=== PATIENT | female | born 1975 | race Caucasian/White ===

== ENCOUNTER → 2020-02-13 10:33 | Outpatient (CLI) | payer BC, SELFPAY ==
[2020-02-14 15:09] LABS: Covid-19 Nasal PCR Sendout Lex NOT DETECTED
== END ==
PROVIDERS: Visit Provider Internal Medicine Gastroenterology
DX: Z03.818 Encounter for observation for suspected exposure to other biological agents ruled out (principal)
CPT/HCPCS: U0003

== ENCOUNTER 2020-02-15 10:34 | Day surgery (SDC) | payer BC, SELFPAY ==
[2020-02-12 12:43] VITALS: BMI 33.1
--- NOTE | 2020-02-12 13:31 | SUR.PREOP ---
02/12/20--PHONE CALL MADE TO PATIENT. PATIENT UNDERSTANDS THAT LAB WORK AND COVID TESTING NEEDS TO BE COMPLETED @ 1030 ON 02/13/20. PATIENT UNDERSTANDS IF LAB WORK AND COVID-19 TESTS ARE NOT COMPLETED BY 12PM ON THAT DATE, THE SURGERY SCHEDULED WILL BE CANCELLED AND RESCHEDULED FOR ANOTHER TIME.
[2020-02-15] VITALS (8 sets, daily range): BP systolic 118–142; BP diastolic 75–95; PULSE 55–79; RESP 18–20; TEMP 36.4–36.6; O2SAT 94–98
--- NOTE | 2020-02-15 12:45 | P.PN_ITS ---
[facility] Anesthesia Checklist - Structural Data Admitted From: Home Planned Operative Procedure/s: egd Consent for Planned Operative Procedure(s) Verified: Yes - Airway Assessment C-Spine Mobility Assessed: Yes TMJ Mobility Assessed: Yes Dentition: Poor Dentition - Neurological Assessment Level of Consciousness: Awake, Alert, Appropriate - Anesthesia Plan Anesthesia Risk discussed: Yes Anesthesia Plan: Verified ASA Class: II Anesthesia Type: MAC [facility] History I have reviewed the patient's past medical history: Yes Medical History: Denies:: Cancer, Diabetes Mellitus Type 1, Diabetes Mellitus Type 2, Internal Pacemaker, MRSA, Seizures *Have you ever received a pneumonia vaccine?: No *Have you received a flu vaccine this season?: Yes Anesthesia experience/problems:: none Laterality Cases: Bilateral: Tonsillectomy Other Surgeries: No: Pacemaker Amputation: No Fractures: No - *Social History Educational Level: Completed College Smoking Status: Light tobacco smoker # Packs/Day (cigarettes): 1 Alcohol Intake: never Substance Use Type: denies use *Occupational Status:: employed Housing: house Household Members: spouse *Travel in the last 8 weeks: None Family Hx:: Heart Attack
--- NOTE | 2020-02-15 12:53 | HMH.PROC ---
[facility] Procedure Note Procedure Note:: Upper Endoscopy Procedure Report: Esophagogastroduodenoscopy with cold biopsies Endoscopost: Mark Sandoval II, MD Referring Physician: Mari ANDREWS Date of Procedure: February 15, 2020 Equipment: Olympus GIF 180 standard upper endoscope Sedation: MAC sedation Indications: Mrs. Thayer is a 44-year-old female who has been diagnosed with chronic hepatitis C and previously mononucleosis. The patient had some recent lab work that showed moderately elevated transaminases with AST 246 and ALT 256 on 02/01/2020. Her alkaline phosphatase 112 and total bilirubin 0.6 were normal. She had a normal meld score. Her hepatic fibrotic score was 0.68 (stage III fibrosis). She did have normal CBC (normal platelets). Her HCVRNA PCR quantification was 4,200,000 IU/mL. I do not have genotype. She is preparing for treatment. She is going to have FibroScan next week. The patient also has a history of Lanza's esophagus. She has dyspepsia with epigastric and some right upper quadrant pain. She has had nausea, early satiety, bloating, gassiness and occasional belching. She does have chronic constipation predominant IBS and is on Linzess. I do not think she is on PPI therapy. She had previously followed with Adelaide Watts MD for her gastroenterology care. Procedure: Prior to the procedure, a history and physical exam was performed, and patient's medications and allergies were reviewed. The risks, benefits and alternatives of the sedation and procedure were discussed with the patient. All questions were answered and informed consent was obtained. The patient was brought to the procedure room. Patient identification and proposed procedure were verified by the physician and the nurse. The patient was placed in a left lateral decubitus position and the scope was passed under direct vision. Throughout the procedure, the patient's blood pressure, pulse, and oxygen saturations were monitored continuously. The upper GI endoscopy was accomplished without difficulty. The patient tolerated the procedure well. Findings: The scope was passed directly into the upper esophagus and advanced to the third portion of the duodenum. The post bulbar duodenum and duodenal bulb were normal with normal mucosa and conniventes. The scope was withdrawn through a normal duodenal bulb and pylorus into the stomach. There was evidence of mild linear reactive gastropathy of the antrum. There was a mosaic pattern within the body and fundus of the stomach consistent with mild portal gastropathy. Cold biopsies were taken from the antrum and lesser curvature (along incisura) to rule out H. pylori. Upon retroflexion there was no significant hiatal hernia. There were no gastric fundic varices. The scope was then withdrawn into the esophagus. There was evidence of grade B (LA classification) reflux esophagitis. There was also evidence of faint grade 1 esophageal varices. Cold biopsies were taken at the GE junction to rule out short segment Lanza's esophagus. Impression: 1. Faint grade 1 esophageal varices 2. Grade B reflux esophagitis (LA classification) 3. Mild portal gastropathy 4. Mild reactive gastropathy of antrum Plan: I do feel the patient has more advanced hepatic fibrosis (stage III-IV). She is well compensated. She is due for FibroScan and will soon receive definitive therapy of her hepatitis C. The patient also has some functional dyspepsia and complicated GERD (reflux esophagitis). I do feel that she should remain on PPI therapy because of this and potential short segment Lanza's esophagus. I do feel that some of her bile gastropathy/reactive gastropathy and dyspepsia are related to her IBS constipation. I would consider changing from Linzess to 1 of the newer colonic promotility agents (Motegrity). I will discussed the findings with patient and family.
[2020-02-15 15:07] LABS: INR 0.98 (0.9-1.1); Prothrombin Time 10.2 seconds (9.4-11.8)
== END 2020-02-15 14:25 | disposition home or self-care (01) ==
PROVIDERS: PCP Emergency Medicine; Visit Provider Internal Medicine Gastroenterology
PROC: 0DJ08ZZ Inspection of Upper Intestinal Tract, Via Natural or Artificial Opening Endoscopic (ICD-10-PCS; CPT 43235; principal; 2020-02-15 11:30)
DX: K22.70 Barrett's esophagus without dysplasia (principal); R10.13 Epigastric pain; B18.2 Chronic viral hepatitis C; I85.00 Esophageal varices without bleeding; K21.0 Gastro-esophageal reflux disease with esophagitis; K58.1 Irritable bowel syndrome with constipation; K76.6 Portal hypertension; K31.89 Other diseases of stomach and duodenum
CPT/HCPCS: 43239; 85610